=== PATIENT | female | born 1930 | race Asian ===

== ENCOUNTER → 2017-10-25 | Outpatient (CLI) | payer MEDICARE, OTHER ==
[~2017-10-25] MED LIST: AMLO1CAP4 PO; CEPH500 PO; LOSARTAN PO; LOVA40TA2 PO
== END | disposition home or self-care (01) ==
LOC: RADPV 12:08
PROVIDERS: ATTEND Internal Medicine
DX: M19.011 Primary osteoarthritis, right shoulder (principal); M19.012 Primary osteoarthritis, left shoulder